=== PATIENT | female | born 1975 | race Caucasian/White ===

== ENCOUNTER → 2022-06-28 | Outpatient (CLI) | payer OTHER ==
--- NOTE | 2022-06-28 16:27 | MR ---
EXAMINATION TYPE: MR brain wo con DATE OF EXAM: 06/28/2022 4:21 PM COMPARISON: NONE HISTORY: Worsening headaches. Multiplanar and multispin-echo imaging of the brain was performed . The ventricles, basal cisterns and sulci overlying the cerebral convexities are within normal limits. There is no evidence for midline shift or mass effect. Acute intracranial hemorrhage or extra-axial collection is not evident. The brain parenchyma reveals no abnormal increased signal. No acute edema is identified. The paranasal sinuses and mastoid air cells are well-aerated. IMPRESSION: Unremarkable MRI of the brain.
== END | disposition home or self-care (01) ==
LOC: RADMRIMAIN 15:19
PROVIDERS: ATTEND Family Medicine
DX: R51.9 Headache, unspecified (principal)
CPT/HCPCS: 70551

== ENCOUNTER → 2025-01-15 | Outpatient (CLI) | payer OTHER ==
[2025-01-15 16:29] VITALS: BP 144/91; PULSE 66; RESP 16; TEMP 98
--- NOTE | 2025-01-15 16:59 | P.SLEEP ---
History of Present Illness DATE: 01/15/2025 CONSULTATION/NEW PATIENT EVALUATION HISTORY OF PRESENT ILLNESS/SLEEP-WAKE EVALUATION: 49-year-old lady had been e valuated in the sleep center for significant excessive daytime sleepiness. SLEEP SCHEDULE: Usually sleep schedule from 912 until 6 7 AM 7 days a week. FALLING ASLEEP: Usually no significant problems with falling asleep, no TV in bedroom. DURING SLEEP: Patient usually sleeps on the stomach position and wake up from sleep once with nocturia. No history of hypnogogical hallucinations, sleep para lysis, or cataplexy. DURING THE DAY/WAKE STATE: In the morning patient wake up tired, falling asleep during the day, has problems with memory, concentration. Dendron sleepiness scale is significantly increased to 18. Patient may take 6 2 naps during the day at different time. PAST MEDICAL HISTORY: Migraines, asthma, ventricular septal defect closed by itself in childhood, elevated liver enzymes. PAST SURGICAL HISTORY: None. MEDICATIONS: Please see below. SOCIAL HISTORY: Please see below. FAMILY HISTORY: Please see below. REVIEW OF SYSTEMS: Sleepiness during the day. No fevers. No double vision. No recent chest pain. No shortness of breath. No abdominal pain. No bleeding episodes. No blood in urine. No seizure episodes. PHYSICAL EXAMINATION: GENERAL: A pleasant patient without any distress. VITAL SIGNS: Please see below, weight 99 pounds, BMI 18.4. HEENT: PERRLA, EOMI. Evaluation of oropharynx showed tongue protrudes midline, low position of soft palate Mallampati 4. NECK: Supple. No JVD. Thyroid is not palpable. 11.5 inches in circumference. LUNGS: Clear to percussion and to auscultation. Good air exchange. No wheezing or rhonchi. HEART: S1, S2 regular. No murmurs, gallops or rubs. ABDOMEN: Soft and nontender. Bowel sounds are present. No organomegaly appreciated. EXTREMITIES: No clubbing or cyanosis. [employer] SPL[employer]ING: Awake, alert, and oriented x3. Cranial nerves 2 to 7 intact. There is no fasciculation or atrophy noted. No focal deficits observed. ASSESSMENT: 1. Significant excessive daytime sleepiness, Dendron Sleepiness Scale increased to 18 differential diagnosis include narcolepsy and idiopathic hypersomnia. 2. Extremely low position of soft palate Mallampati 4, awakenings from sleep, rule out obstructive sleep apnea. 3. History of migraines. 4. History of elevated liver enzymes. 5. History of asthma. 6 . History of ventricular septal defect closed by itself during childhood. PLAN: 1. Polysomnography for evaluation of patient's breathing during sleep. Multiple sleep latency test if sleep study will be negative for obstructive sleep apnea hypopnea syndrome. 2. Following plan after reading sleep study 3. Preferable position during sleep on the side. 4. No driving if patient feels any sleepiness. Patient is aware of civil and criminal liability for unsafe driving. 5. Sleep hygiene with regular sleep time for at least 7.5-8 hours. 6. Watching weight. Thank you very much for referring this patient for consultation. Sincerely, Rene Kim MD, PhD, FAASM. Diplomat of [place] [employer], Sleep Medicine Board by [place] [employer] [place] [employer] [place] cc: Sunita Samano MD Past Medical History Past Medical History: Asthma Additional Past Medical History / Comment(s): migraines, heart problems, elevated Liver enzymes History of Any Multi-Drug Resistant Organisms: None Reported Past Surgical History: No Surgical Hx Reported Past Anesthesia/Blood Transfusion Reactions: No Reported Reaction Past Psychological History: No Psychological Hx Reported Smoking Status: Never smoker Past Alcohol Use History: None Reported Past Drug Use History: None Reported - Past Family History Father Additional Family Medical History / Comment(s): bronchitis, Emphysema Mother Family Medical History: Cancer Medications and Allergies Home Medications Medication Instructions Recorded Confirmed Type Rizatriptan Benzoate 10 mg PO DIRECTED PRN 01/15/25 01/15/25 History Ubrogepant [Ubrelvy] 100 mg PO DIRECTED PRN 01/15/25 01/15/25 History Physical Exam Vitals: Vital Signs Temp Pulse Resp BP Pulse Ox 01/15/25 16:28 98 F 66 16 144/91 98 Intake and Output 01/15/25 01/15/25 01/15/25 06:59 14:59 22:59 Other: Weight 44.906 kg Sleep Note - Sleep Data ESS Total: 18 - Sleep Note Sleep Note: Temperature: 98 F Pulse Rate: 66 Respiratory Rate: 16 Blood Pressure: 144/91 SpO2: 98 Height: 5 ft 1.5 in Weight: 44.906 kg BMI: Neck Circumference: 11.5
== END ==
LOC: 3 N SLEEP 16:15
PROVIDERS: ATTEND Internal Medicine
DX: G47.10 Hypersomnia, unspecified (principal); G47.419 Narcolepsy without cataplexy; Z86.69 Personal history of other diseases of the nervous system and sense organs; Z87.19 Personal history of other diseases of the digestive system; Z87.09 Personal history of other diseases of the respiratory system; Z86.79 Personal history of other diseases of the circulatory system
CPT/HCPCS: 99211

== ENCOUNTER → 2025-02-05 | Outpatient (CLI) | payer OTHER ==
--- NOTE | 2025-02-05 15:39 | MR ---
EXAMINATION TYPE: MR MRCP DATE OF EXAM: 02/05/2025 9:10 AM COMPARISON: None. CLINICAL INDICATION: Female, 49 years old with history of R93.5 ABN FINDINGS ON DX IMAGING OF ABD REG IONS, I, Abnormal US IV Contrast: cc (None if empty) Standard multiplanar, multisequence MRI departmental protocol Multiplanar, multisequence images of the abdomen and biliary tree were acquired without contrast. Dif fusion weighted imaging was performed. FINDINGS: There are few scattered tiny simple cysts of the liver the largest measuring 1 cm near the dome of th e liver medial segment left hepatic lobe. No solid hepatic masses are seen. There is evidence of hepa tic steatosis. Biliary tree is of normal caliber. The gallbladder is free of wall thickening or peric holecystic fluid. No cholelithiasis is present. Common bile duct is of normal caliber without filling defect identified. Pancreas is homogeneous without mass lesion or inflammatory process. Pancreatic duct is of normal scar iber. The spleen is not enlarged. No intrasplenic lesions are present. Visualized portions of the kidneys are free of hydronephrosis or mass. No nephrolithiasis. Abdominal aorta is of normal caliber. No retroperitoneal adenopathy. IMPRESSION: 1. Normal MRCP component of the examination. 2. Fatty liver with a few scattered hepatic cysts. [facility], , 02/05/2025 3:36 PM
== END | disposition home or self-care (01) ==
LOC: RADMRIMAIN 08:10
PROVIDERS: ATTEND Family Medicine
DX: R93.5 Abnormal findings on diagnostic imaging of other abdominal regions, including retroperitoneum (principal); K76.89 Other specified diseases of liver; K76.0 Fatty (change of) liver, not elsewhere classified
CPT/HCPCS: 74181